=== PATIENT | female | born 1945 | race Caucasian/White ===

== ENCOUNTER 2021-08-25 11:44 | Outpatient (CLI) | payer MEDICARE, OTHER, SELFPAY ==
[2021-08-25 12:52] LABS: Alanine Aminotransferase 19 U/L (4-35); Albumin Level 4.2 g/dL (3.5-5.1); Alkaline Phosphatase 74 U/L (38-126); Aspartate Amino Transferase 19 U/L (14-36); Bilirubin,Total 0.6 mg/dL (0.2-1.3); Cholesterol 147 mg/dL (0-200); HDL Direct 64 mg/dL; Triglycerides 63 mg/dL (<150)
[2021-08-25 18:41] LABS: LDL Cholesterol Direct 76 mg/dL
== END 2021-08-25 11:45 | disposition home or self-care (01) ==
PROVIDERS: PCP Family Medicine; Visit Provider Family Medicine
DX: E78.00 Pure hypercholesterolemia, unspecified (principal)
CPT/HCPCS: 36415; 80061; 80076

== ENCOUNTER 2021-09-04 23:51 | Emergency (ER) | payer MEDICARE, OTHER, SELFPAY ==
--- NOTE | ~2021-09-04 | XR_ITS ---
XR knee RT 3V DATE: 09/05/2021 00:25 INDICATION: Fall, left knee injury, pain TECHNIQUE: 4 views COMPARISON: None FINDINGS: There is a slightly displaced transverse intra-articular fracture through the mid to lower aspect of the patella. There is prominent suprapatellar effusion. There is prominent periarticular spurring of the patellofemoral joint consistent with osteoarthritis. There is mild periarticular spurring at the medial and lateral compartments and relative preservatio n of medial and lateral compartment joint space. There is diffuse osteopenia. No periosteal reaction or bone destruction.. 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 TH AND WELLNESS ADVISOR
--- NOTE | ~2021-09-04 | CT_ITS ---
EXAMINATION: CT brain wo con DATE: 09/05/2021 00:13 INDICATION: Head injury from fall. Left frontal hematoma TECHNIQUE: Computed tomography (CT) of the head was performed without intravenous contrast. The mA wa s adjusted according to patient size. Iterative reconstruction technique was employed. Exam dose: 60 5.33 mGy-cm total exam DLP. COMPARISON: None FINDINGS: . Left vertebral and bilateral carotid siphon internal carotid artery calcifications. There is nonspecific diminished attenuation cerebral white matter, likely due to chronic small vessel isch emic changes. No intracranial mass lesion or hemorrhage or cerebrovascular accident. No midline shift or mass effec t effect. No subdural or epidural hematoma. Small osteoma in the right frontoethmoid area. Mucous retention cyst along the medial wall of the lef t maxillary sinus. Included paranasal sinuses and the mastoid air cells are otherwise normally develo ped and aerated. No fracture or bone destruction of the cranial vault. IMPRESSION: Cerebral atherosclerosis and chronic small vessel ischemic changes of the cerebral white matter Reviewed, dictated and finalized at [facility]. Reviewed, dictated and finalized at location [facility]. OPERATOR AUTOMATIC
[2021-09-04 23:52] VITALS: BP 144/85; PULSE 85; RESP 18; TEMP 36.7; O2SAT 96
[2021-09-04 23:56] VITALS: BP 140/95; PULSE 76; RESP 18; O2SAT 99
--- NOTE | 2021-09-04 23:59 | ED.FALL ---
HPI - Fall General Chief Complaint: Fall Stated Complaint: fall Time Seen by Provider: 09/05/21 00:05 Source: patient Mode of arrival: wheelchair Limitations: no limitations History of Present Illness HPI Narrative: Patient is a 75-year-old female complaining of right knee pain after she tripped and fell over dining room chair landing on her right knee. Patient states her pain currently is a 5 out of 10, dull, worse with movement and walking. Patient also admits to hitting the left side of her head on the floor, denies any loss of consciousness. Patient denies any neck, chest, abdomen, back, pelvis or any other extremity pain/injury. Patient was asymptomatic prior to the fall. Related Data Allergies Allergy/AdvReac Type Severity Reaction Status Date / Time codeine Allergy Unknown Verified 02/15/17 15:07 ERYTHROMYCINS Allergy Mild HIVES Uncoded 01/30/09 12:44 Review of Systems Review of Systems: All systems reviewed & are unremarkable except as noted in HPI and below Constitutional: Constitutional: Reports as per HPI Eyes: Eyes: Denies blurry vision, Denies change in vision and Denies loss of vision ENT: Denies dizziness, Denies ear discharge, Denies headache(s), Denies lip swelling, Denies epistaxis, Denies nasal congestion, Denies neck pain, Denies throat swelling and Denies tongue swelling Cardiovascular: Cardiovascular: Denies chest pain, Denies chest pain at rest, Denies chest pain with activity, Denies diaphoresis, Denies rapid heart rate, Denies edema, Denies irregular heart rhythm, Denies lightheadedness, Denies palpitations, Denies dyspnea and Denies dyspnea on exertion Respiratory: Respiratory: Denies chest congestion, Denies cough, Denies hemoptysis, Denies dyspnea and Denies dyspnea on exertion Gastrointestinal: Gastrointestinal: Denies abdominal pain, Denies melena, Denies hematochezia, Denies diarrhea, Denies nausea, Denies vomiting and Denies hematemesis Musculoskeletal: Musculoskeletal: Denies neck pain and Denies numbness Neurologic: Denies Abnormal speech present, Denies abnormal gait, Denies confusion, Denies dizziness, Denies headache(s), Denies focal weakness, Denies loss of vision, Denies numbness, Denies Other visual disturbances, Denies Sensory deficit (Neuro) and Denies weakness Psychiatric: Psychiatric: Denies confusion, Denies depression, Denies auditory hallucinations, Denies homicidal ideation and Denies suicidal ideation Endocrine: Endocrine: Denies cold intolerance, Denies excessive sweating, Denies fatigue, Denies heat intolerance and Denies palpitations Hematologic/Lymphatic: Hematologic/Lymphatic: Denies easy bleeding and Denies easy bruising Allergic/Immunologic: Allergic/Immunologic: Denies lip swelling, Denies throat swelling and Denies tongue swelling PMFSH Family History Family History Father Family history of chronic obstructive pulmonary disease Family history of diabetes mellitus in first degree relative Family history of malignant neoplasm Mother Family history of diabetes mellitus in first degree relative Family history of renal failure Diabetes mellitus Sibling Family history of lung cancer Family history of malignant neoplasm of breast in first degree relative Hypertension Family history of malignant neoplasm of breast Other Cerebrovascular accident Family history of malignant neoplasm of bone Social History Social History Smoking status: Never smoker Second hand tobacco smoke exposure: No Alcohol intake: current Exam Const: General: cooperative, healthy appearing, comfortable, no acute distress, well developed, alert and awake; No confusion Orientation/consciousness: oriented to person, oriented to place, oriented to time, patient oriented x3 and No confusion Limitations: no limitations HENMT: Ears: hearing grossly normal bilaterally, TM
[2021-09-05] MEDS: TETANUS,DIPHTHERIA,AC PERTUSSIS ADULT (0.5 ML) BOOSTRIX IM (00:37)
[2021-09-05] MEDS: HYDROcodone/acetaminophen (*CRX) 5-325 MG TABLET 1 TAB PO (01:37)
[2021-09-05 01:52] VITALS: BP 117/68; PULSE 80; RESP 18; O2SAT 100
== END 2021-09-05 01:53 | disposition home or self-care (01) ==
PROVIDERS: Emergency Provider Emergency Medicine; PCP Family Medicine
DX: S82.092A Other fracture of left patella, initial encounter for closed fracture (principal); S09.90XA Unspecified injury of head, initial encounter; Z23 Encounter for immunization; M85.862 Other specified disorders of bone density and structure, left lower leg; M17.12 Unilateral primary osteoarthritis, left knee; W18.09XA Striking against other object with subsequent fall, initial encounter
CPT/HCPCS: 70450; 73562; 90471; 90715; 99284; A9270

== ENCOUNTER 2022-01-07 15:00 | Outpatient (RCR) | payer MEDICARE, OTHER, SELFPAY ==
--- NOTE | 2021-12-10 15:51 | PTOPEVAL ---
PHYSICAL THERAPY INITIAL EVALUATION. Thank you for referring Rl aSenz to [facility].? The patient is scheduled to be seen for therapy? 2x/week for 4 weeks. Please review, sign, date and return this plan of care CAPRICE. I agree with and certify that the following plan of care is medically necessary. Referring Physician Date Attending Provider: Heriberto Gould APN *PT Outpatient Evaluation Start: 12/10/21 Evaluation Information Diagnosis Transverse fracture of R patella Onset 09/04/22 Cause fall Subjective Information Rl states she fell on her Query Text:As Reported By Patient/ knee and broke her patella Family about 3 months ago. She reports she was cleaning under a table and when she got up she tripped over the leg of one of the chairs. She states she does not have much pain from her knee any more. She states her primary complains are it feeling weak and not being able to bend it well. She states she does not trust it when she has to go up and down the stairs. She reports her overall fitness is below where she would like it to be. Additional Prior Level of Function Pt states she lives in a 3 Comments level home with 6 ZAIRA. Pain Assessment Pain Score 0: Self Report Lower Extremity Range of Motion General Lower Extremity Range of Motion Gross Lower Extremity Range of Motion L knee 0-125 Comments R knee 0- 110 active R knee 0-118 passive Lower Extremity Muscle Strength Testing General Lower Extremity Strength Gross Lower Extremity Strength B LE grossly 4/5 R knee extension 4-/5 Balance Assessment 5 Time Sit to Stand Time in Seconds 24.8 5 Time Sit to Stand Comments Without use of UEs. Query Text:Normative Data: If Greater R foot placed further anterior Than 15 Seconds, 74% Increase Risk for compared to L Recurrent Falls Gait Pattern Assessment Gait Pattern Trendelenburg Gait Gait Pattern Observed Decreased Stride Length - Right,Decreased Weight Shift - Left,No Heel Strike - Left, Trunk Lateral Lean - Right Stair Climbing Assessment Technique Alternating Steps Stair Climbing Direction Both Up and Down Stair Climbing Comments Increased
--- NOTE | 2021-12-15 08:28 | PCPTNOTE ---
Patient called & cancelled scheduled appointment this date due to scheduling conflicts.
--- NOTE | 2022-01-07 15:38 | PTOPEVAL ---
PHYSICAL THERAPY DISCHARGE NOTE. Thank you for referring Rl Saenz to [facility].? The patient is to be discharged from physical therapy at this time. Please review, sign, date and return this plan of care CAPRICE. I agree with and certify that the following plan of care is medically necessary. Referring Physician Date Attending Provider: Heriberto Gould APN *PT Outpatient Evaluation Start: 12/10/21 Evaluation Information Diagnosis Transverse fracture of R patella Onset 09/04/22 Subjective Information Pt states her knee is doing Query Text:As Reported By Patient/ really well, she reports no Family pain in her knee and no functional limitations. She states she still is out of shape from what she would like. She reports generalized weakness and decreased balance Pain Assessment Pain Score 0: Self Report Lower Extremity Range of Motion Gross Lower Extremity Range of Motion L knee 0-125 Comments R knee 0- 122 active R knee 0-130 passive Lower Extremity Muscle Strength Testing Gross Lower Extremity Strength B hip flexion 4+/5 B knee extension 4/5 B knee flexion 4/5 Balance Assessment Time Up Go (TUG) Timed Up and Go Test (TUG) (Seconds) 8 5 Time Sit to Stand Time in Seconds 24.8 5 Time Sit to Stand Comments Initially: 24.8s without use Query Text:Normative Data: If Greater of UEs. Than 15 Seconds, 74% Increase Risk for R foot placed further anterior Recurrent Falls compared to L Today: 14 s with weight distribution Gait Assessment Gait Pattern Trendelenburg Gait Gait Pattern Observed Trunk Lateral Lean - Right Additional Rehab Teaching Comments Educated Pt on silver sneakers program for maintenance PT Clinical Summary Rl presents today for her progress note following 6 therapy visits for her previous patellar fracture. Today she demonstrates equal range of motion and strength bilaterally, she demonstrates equal weight distribution during gait as well as transfers. She is to be discharged at this time to continue her HEP and to participate in community
== END 2022-01-08 09:15 | disposition home or self-care (01) ==
LOC: ANHPT 15:00
PROVIDERS: PCP Family Medicine; Referring Provider Nurse Practitioner; Visit Provider Nurse Practitioner
DX: S82.031D Displaced transverse fracture of right patella, subsequent encounter for closed fracture with routine healing (principal)
CPT/HCPCS: 97110; 97112; 97161; 97530

== ENCOUNTER 2022-09-11 10:16 | Emergency (ER) | payer MEDICARE, OTHER, SELFPAY ==
[2022-09-11 10:39] VITALS: BP 133/75; PULSE 91; RESP 16; TEMP 37.1; O2SAT 97
--- NOTE | 2022-09-11 11:10 | ED.URI ---
HPI - URI/Sore Throat General Chief Complaint: Upper Respiratory Infection Stated Complaint: sore throat,headache,ear hurts,cough Time Seen by Provider: 09/11/22 11:24 Source: patient and RN notes reviewed Mode of arrival: ambulatory Limitations: no limitations History of Present Illness HPI Narrative: 76-year-old female presents with concern for sinus congestion, scratchy throat, cough. Reports symptoms started Wednesday. Reports her was just hospitalized for influenza a and breathing difficulty. She denies breathing difficulty. MD elicited complaint: cough and nasal congestion Related Data Home Medications Medication Instructions Recorded Confirmed atorvastatin 10 mg tablet (Lipitor) 10 mg PO DAILY 09/10/21 09/11/22 Allergies Allergy/AdvReac Type Severity Reaction Status Date / Time codeine Allergy Unknown unknown Verified 09/11/22 10:57 ERYTHROMYCINS Allergy Mild HIVES Uncoded 09/11/22 10:57 Review of Systems Review of Systems: CONSTITUTIONAL: Reports malaise. Denies chills, sweats, or fever. EYES: Denies visual changes, redness, or discharge. ENT: Reports rhinorrhea, congestion, sore throat. Denies sinus pain, otalgia CARDIOVASCULAR: Denies chest pain, palpitations, or edema. RESPIRATORY: Reports cough. Denies dyspnea. GASTROINTESTINAL: Denies abdominal pain, nausea, vomiting, diarrhea SKIN: Denies rash or itching. MUSCULOSKELETAL: Denies myalgia. NEUROLOGIC: Denies headache. All systems reviewed & are unremarkable except as noted in HPI and below PMFSH Family History Family History Father Family history of chronic obstructive pulmonary disease Family history of diabetes mellitus in first degree relative Family history of malignant neoplasm Mother Family history of diabetes mellitus in first degree relative Family history of renal failure Diabetes mellitus Sibling Family history of lung cancer Family history of malignant neoplasm of breast in first degree relative Hypertension Family history of malignant neoplasm of breast Other Cerebrovascular accident Family history of malignant neoplasm of bone Social History Social History Smoking status: Never smoker Second hand tobacco smoke exposure: No Alcohol intake: never Gender identity (if verbalized by the patient): Female Comments At time of signature, agree with nursing past medical, surgical, social and family history. There is no relevant family history pertinent to the presenting complaint Exam Narrative: GENERAL: Well-appearing, well-nourished, and in no acute distress. HEAD: Normocephalic EYES: PERRLA, conjunctivae clear ENT: Nares clear, turbinates edematous and erythematous, clear discharge. Mucous membranes moist. TM pearly sethi with dull light reflex bilaterally; no tragal tenderness. Oropharynx not erythematous without lesions. Tonsils not enlarged and without exudate, no drooling, no hoarseness, no trismus, uvula midline. NECK: Supple. No lymphadenopathy CHEST: Clear to auscultation, breath sounds equal. No wheezing, rhonchi, rales, or stridor. No respiratory distress, speaks in full sentences. Cough noted HEART: Regular rate and rhythm. No murmur heard. SKIN: Warm, dry, no rash. NEURO: Alert and oriented x3. PSYCH: Normal mood and affect Course Course Emergency Course: Patient is aware of diagnosis, understands and agrees to treatment plan. Anticipatory guidance given. Patient agrees to follow-up as directed and is aware of reasons to seek care at the emergency department. Portions of this record may have been created with voice recognition software Level of Care: Express Care Visit Vital Signs Vital signs: Vital Signs Temperature 98.8 F 09/11/22 10:39 Pulse Rate 91 09/11/22 10:39 Respiratory Rate 16 09/11/22 10:39 Blood Pressure 133/75 09/11/22 10:39 Pulse Oximetry 97 08/19
== END 2022-09-11 11:42 | disposition home or self-care (01) ==
PROVIDERS: Emergency Provider Nurse Practitioner; PCP Family Medicine
DX: J10.1 Influenza due to other identified influenza virus with other respiratory manifestations (principal); E78.00 Pure hypercholesterolemia, unspecified
CPT/HCPCS: 87804; 99213; G0463